=== PATIENT | female | born 1970 | race Hispanic/Latino ===

== ENCOUNTER 2025-06-21 12:54 | Emergency (ER) | payer OTHER ==
[2025-06-21 13:34] LABS: #Basophils 0.06 10x3/uL (0.0-0.2); #Eosinophils 0.17 10x3/uL (0.0-0.5); #Monocytes 0.69 10x3/uL (0.0-1.1); #Neutrophils 5.45 10x3/uL (1.5-8.4); %Basophils 0.7 % (0.0-2.0); %Eosinophils 2.0 % (0.0-6.0); %Lymphocytes 23.5 % (18.0-47.0); %Monocytes 8.3 % (0.0-10.0); %Neutrophils 65.3 % (40.0-75.0); Hematocrit 36.4 % (34.9-44.5); Hemoglobin 12.8 g/dL (12.0-15.5); Mean Corpuscular Hemoglobin 32.9 pg (27.0-33.0); Mean Corpuscular Volume 93.6 fL (81.6-98.3); Platelet Count 199 10x3/uL (150-450); Red Blood Cell (RBC) Count 3.89 10x6/uL (3.90-5.03); White Blood Cell (WBC) Count 8.35 10x3/uL (3.5-10.5)
[2025-06-21 13:49] LABS: ALT (SGPT) 31 U/L (Less than 34); AST (SGOT) 29 U/L (11-34); Albumin 3.0 g/dL (3.1-4.5); Alkaline Phosphatase 61 U/L (40-110); Anion Gap 11 mmol/L (10-20); BUN (Urea Nitrogen) 19 mg/dL (9.8-20.1); Bilirubin, Total 0.4 mg/dL (0.3-1.2); Calc. Creatinine Clearance 0 mL/min (70-130); Calcium 8.2 mg/dL (7.8-10.44); Carbon Dioxide 25 mmol/L (22-29); Chloride 110 mmol/L (98-107); Globulin 1.8 g/dL (2.4-3.5); Glucose 82 mg/dL (70-105); Potassium 3.9 mmol/L (3.5-5.1); Sodium 142 mmol/L (136-145)
[2025-06-21 13:54] LABS: Troponin I Less than 0.010 ng/mL (< 0.028)
== END 2025-06-21 14:28 | disposition home or self-care (01) ==
LOC: CSHERS 12:54
DX: E86.0 Dehydration (principal); E78.5 Hyperlipidemia, unspecified; I10 Essential (primary) hypertension; E03.9 Hypothyroidism, unspecified; Z79.890 Hormone replacement therapy; Z79.899 Other long term (current) drug therapy; Z87.891 Personal history of nicotine dependence
CPT/HCPCS: 36415; 80053; 83605; 83880; 84484; 85025; 93005; 99285